=== PATIENT | male | born 1985 | race Caucasian/White ===

== ENCOUNTER 2020-05-04 00:13 | Emergency (ER) | payer SELFPAY ==
[~2020-05-04] VITALS: Ht 172.7 cm; Wt 107.0 kg
[2020-05-04] MEDS ORDERED: LIDOCAINE HCL/EPINEPHRINE 1%-EPI 1:100,000 20 ML VIAL INFIL ONE (00:45)
[2020-05-04] MEDS ORDERED: LIDOCAINE HCL 1% 20ML VIAL (Pyxis) INJ INFIL ONE (00:45)
[2020-05-04] MEDS ORDERED: LIDOCAINE 1%/EPI 1:100,000 10 ML VIAL IJ NR (01:30)
[2020-05-04] MEDS ORDERED: CEPHALEXIN 250MG CAPSULE PO ONE (04:15)
[2020-05-04 04:30] VITALS: BP 127/79
== END 2020-05-04 04:43 | disposition home or self-care (01) ==
LOC: ER 01:08
DX: S61.212A Laceration without foreign body of right middle finger without damage to nail, initial encounter (principal); X99.8XXA Assault by other sharp object, initial encounter; R03.0 Elevated blood-pressure reading, without diagnosis of hypertension; Y93.89 Activity, other specified; Y92.89 Other specified places as the place of occurrence of the external cause
CPT/HCPCS: 12002; 73130; 99283; J3490